=== PATIENT | female | born 1955 | race Caucasian/White ===

== ENCOUNTER 2020-12-17 09:41 | Outpatient (CLI) | payer MEDICARE | END 2020-12-17 09:42 | disposition home or self-care (01) | LOC: BICMAMMO 09:41 | PROVIDERS: ATTEND Internal Medicine Endocrinology, Diabetes & Metabolism | DX: Z13.820 Encounter for screening for osteoporosis (principal); E83.52 Hypercalcemia; Z20.822 Contact with and (suspected) exposure to COVID-19 | CPT/HCPCS: 77080 ==

== ENCOUNTER 2023-04-07 11:25 | Inpatient (IN) | payer MEDICARE ==
[2023-04-07 15:09] LABS: #Basophils 0.1 thou/uL (0.0-0.2); #Eosinphils 0.2 thou/uL (0.0-0.7); #Monocytes 0.4 thou/uL (0.11-0.59); #Neutrophils 3.5 thou/uL (1.40-6.50); %Basophils 0.8 % (0.0-1.0); %Eosinophils 2.7 % (0.0-10.0); %Lymphocytes 31.4 % (21.0-51.0); %Monocytes 6.6 % (0.0-10.0); %Neutrophils 58.3 % (42.0-75.0); Hematocrit 40.8 % (36.0-47.0); Hemoglobin 13.2 g/dL (12.0-16.0); Mean Corpuscular HGB CONC 32.4 g/dL (32.0-36.0); Mean Corpuscular Hemoglobin 29.1 pg (27.0-31.0); Mean Corpuscular Volume 90.1 fl (78.0-98.0); Mean Platelet Volume 9.9 fL (7.4-10.4); Platelet Count 289 10x3/uL (130-400); RBC Distribution Width 13.8 % (11.5-14.5); Red Blood Cell (RBC) Count 4.53 mill/uL (4.20-5.40)
[2023-04-07 15:45] LABS: ALT (SGPT) 68 U/L (8-55); AST (SGOT) 51 U/L (5-34); Albumin 4.1 g/dL (3.4-4.8); Alkaline Phosphatase 110 U/L (40-110); Anion Gap 15 mmol/L (10-20); BUN (Urea Nitrogen) 16 mg/dL (9.8-20.1); Calc. Creatinine Clearance 0 mL/min (70-130); Calcium 10.8 mg/dL (7.8-10.44); Carbon Dioxide 20 mmol/L (23-31); Chloride 108 mmol/L (98-107); Estimated GFR 67; Globulin 2.9 g/dL (2.4-3.5); Glucose 110 mg/dL (80-115); Potassium 4.8 mmol/L (3.5-5.1); Sodium 138 mmol/L (136-145)
[2023-04-07 15:47] LABS: Troponin I 0.047 ng/mL (< 0.028)
[2023-04-07] MEDS ORDERED: Furosemide 40 MG/4 ML VIAL ONE (15:54)
[2023-04-07] MEDS ORDERED: Aspirin Chewable 81 MG TAB ONE (15:54)
[2023-04-07] MEDS ORDERED: Senokot S 8.6-50 MG TAB PO PRN (17:44)
[2023-04-07] MEDS ORDERED: Acetaminophen 325 MG TAB PO PRN (17:44)
[2023-04-07] MEDS ORDERED: Ondansetron PF 4 MG/2 ML Vial IVP PRN (17:44)
[2023-04-07] MEDS ORDERED: Calcium Carbonate 500 MG ChewTAB PO PRN (17:44)
[2023-04-07] MEDS ORDERED: hydrALAZINE 20 MG/ML VIAL SLOW IVP PRN (17:48)
[2023-04-07] MEDS ORDERED: Labetalol HCl 100 MG/20 ML VIAL SLOW IVP SCH (18:00)
[2023-04-07] MEDS ORDERED: Furosemide 40 MG/4 ML VIAL SLOW IVP SCH (18:15)
[2023-04-07] MEDS ORDERED: Labetalol HCl 100 MG/20 ML VIAL ONE ×2 (18:17→18:19)
[2023-04-07] MEDS ORDERED: Furosemide 20 MG/2 ML VIAL ONE (18:17)
[2023-04-07 19:35] LABS: Troponin I 0.052 ng/mL (< 0.028)
[2023-04-07] MEDS: Carvedilol 3.125 MG TAB PO SCH (21:00)
[2023-04-07] MEDS ORDERED: cloNIDine 0.1 MG TAB PO SCH (21:00)
[2023-04-07 22:06] VITALS: BMI 26.4
[2023-04-07 22:29] LABS: Troponin I 0.053 ng/mL (< 0.028)
[2023-04-07] MEDS ORDERED: Sodium Chloride 0.9% 250 ML IV SCH (22:45)
[2023-04-08] MEDS: Furosemide 40 MG/4 ML VIAL SLOW IVP SCH ×2 (05:17→14:04)
[2023-04-08 05:20] LABS: #Basophils 0.1 thou/uL (0.0-0.2); #Eosinphils 0.2 thou/uL (0.0-0.7); #Monocytes 0.6 thou/uL (0.11-0.59); #Neutrophils 4.6 thou/uL (1.40-6.50); %Basophils 0.8 % (0.0-1.0); %Eosinophils 2.5 % (0.0-10.0); %Lymphocytes 27.1 % (21.0-51.0); %Monocytes 8.3 % (0.0-10.0); %Neutrophils 61.2 % (42.0-75.0); Hematocrit 41.8 % (36.0-47.0); Hemoglobin 13.9 g/dL (12.0-16.0); Mean Corpuscular HGB CONC 33.3 g/dL (32.0-36.0); Mean Corpuscular Hemoglobin 28.9 pg (27.0-31.0); Mean Platelet Volume 9.9 fL (7.4-10.4); Platelet Count 283 10x3/uL (130-400); RBC Distribution Width 13.6 % (11.5-14.5); Red Blood Cell (RBC) Count 4.81 mill/uL (4.20-5.40); White Blood Cell (WBC) Count 7.5 10x3/uL (4.8-10.8)
[2023-04-08 05:27] LABS: Hemoglobin A1c 5.4 % (4.0-6.0)
[2023-04-08 05:34] LABS: Mean Corpuscular Volume 86.9 fl (78.0-98.0)
[2023-04-08 05:50] LABS: ALT (SGPT) 56 U/L (8-55); AST (SGOT) 36 U/L (5-34); Alkaline Phosphatase 104 U/L (40-110); Anion Gap 13 mmol/L (10-20); BUN (Urea Nitrogen) 19 mg/dL (9.8-20.1); Bilirubin, Total 0.9 mg/dL (0.2-1.2); Calc. Creatinine Clearance 54 mL/min (70-130); Calcium 10.7 mg/dL (7.8-10.44); Carbon Dioxide 25 mmol/L (23-31); Cardiac Risk 2.5 (Less than 4.5); Chloride 104 mmol/L (98-107); Cholesterol 114 mg/dl (< 200 Desired); Estimated GFR 62; Globulin 3.1 g/dL (2.4-3.5); Glucose 92 mg/dL (80-115); HDL Cholesterol 45 mg/dL (>60 Neg Risk); LDL Cholesterol, Calculated 47 mg/dL; Magnesium 1.9 mg/dL (1.6-2.6); Potassium 3.4 mmol/L (3.5-5.1); Protein, Total 7.1 g/dL (5.8-8.1); Sodium 139 mmol/L (136-145); Triglycerides 108 mg/dL (Less than 150)
[2023-04-08] MEDS ORDERED: Aspirin Chewable 81 MG TAB PO SCH (09:00)
[2023-04-08] MEDS ORDERED: CO Q-10 CAPSULE 100 MG PO SCH (09:00)
[2023-04-08] MEDS ORDERED: Digoxin 0.125 MG TAB PO SCH (09:00)
[2023-04-08] MEDS ORDERED: Spironolactone 25 MG TAB PO SCH (09:00)
[2023-04-08] MEDS: Carvedilol 3.125 MG TAB PO SCH (10:15)
[2023-04-08] MEDS ORDERED: Potassium Chloride 20 MEQ TAB PO SCH (12:15)
[2023-04-08 16:37] VITALS: BP 128/68; TEMP 98
== END 2023-04-08 17:00 | disposition home or self-care (01) | DRG 291 ==
LOC: ERS 11:25 → SUATTDRO 11:25 → 2NO 17:52
PROVIDERS: ADMIT Internal Medicine; ATTEND Internal Medicine
DX: I11.0 Hypertensive heart disease with heart failure (principal); I50.23 Acute on chronic systolic (congestive) heart failure; R09.89 Other specified symptoms and signs involving the circulatory and respiratory systems; Z88.8 Allergy status to other drugs, medicaments and biological substances; Z79.899 Other long term (current) drug therapy
CPT/HCPCS: 36415; 71046; 80053; 80061; 83036; 83735; 83880; 84443; 84484; 85025; 93005; 93306; 96374; 96375; 96376; J1650; J1940; J7030

== ENCOUNTER 2024-09-24 10:30 | Inpatient (IN) | payer MEDICARE ==
[2024-09-24 10:51] VITALS: BMI 27.8
[2024-09-24 12:00] LABS: #Basophils 0.07 10x3/uL (0.0-0.2); %Basophils 0.9 % (0.0-1.0); %Eosinophils 4.8 % (0.0-10.0); %Lymphocytes 27.6 % (21.0-51.0); %Monocytes 7.8 % (0.0-10.0); %Neutrophils 58.8 % (42.0-75.0); Hematocrit 36.9 % (36.0-47.0); Hemoglobin 12.3 g/dL (12.0-16.0); Mean Corpuscular HGB CONC 33.3 g/dL (32.0-36.0); Mean Corpuscular Hemoglobin 30.4 pg (27.0-31.0); Mean Corpuscular Volume 91.3 fL (78.0-98.0); Platelet Count 359 10x3/uL (130-400); RBC Distribution Width 13.3 % (11.5-14.5); Red Blood Cell (RBC) Count 4.04 mill/uL (4.20-5.40)
[2024-09-24 12:40] LABS: Anion Gap 13 mmol/L (10-20); BUN (Urea Nitrogen) 29 mg/dL (9.8-20.1); Calc. Creatinine Clearance 0 mL/min (70-130); Calcium 11.7 mg/dL (7.8-10.44); Carbon Dioxide 22 mmol/L (23-31); Chloride 109 mmol/L (98-107); Estimated GFR 62; Glucose 104 mg/dL (80-115); Potassium 5.1 mmol/L (3.5-5.1); Sodium 139 mmol/L (136-145)
[2024-09-25] MEDS ORDERED: CEFAZOLIN 2 GM VIAL ONE (06:05)
[2024-09-25] MEDS ORDERED: Lidocaine 1% MPF 2 ML VIAL ONE (06:05)
[2024-09-25] MEDS ORDERED: EPINEPHrine 1 MG/ML VIAL ONE ×2 (06:27→08:55)
[2024-09-25] MEDS ORDERED: Albumin 5% 500 ML ONE (06:27)
[2024-09-25] MEDS ORDERED: Dexamethasone 4 mg/ml Vial ONE (06:27)
[2024-09-25] MEDS ORDERED: Bupivacaine PF 0.5% 30 ML VIAL ONE ×2 (06:27→08:55)
[2024-09-25] MEDS ORDERED: Heparin 5,000 UNITS/ML VIAL ONE (06:27)
[2024-09-25] MEDS ORDERED: PHENYLEPHRINE-NS 100 MCG/ML 10 ML SYRINGE ONE ×3 (06:28→10:15)
[2024-09-25] MEDS ORDERED: Fentanyl 250 MCG/5 ML VIAL ONE (06:30)
[2024-09-25] MEDS ORDERED: PROPOFOL 20 ML ONE (06:30)
[2024-09-25] MEDS ORDERED: Midazolam HCl 2 mg/2 ml Vial ONE (06:30)
[2024-09-25] MEDS ORDERED: Ondansetron PF 4 MG/2 ML Vial ONE (06:32)
[2024-09-25] MEDS ORDERED: Rocuronium Bromide 10 MG/ML (10ML VIAL) ONE ×2 (06:32→08:32)
[2024-09-25] MEDS ORDERED: Lidocaine 1% PF 5 ML VIAL ONE (06:32)
[2024-09-25] MEDS ORDERED: Dexamethasone 20 MG/5 ML VIAL ONE (06:32)
[2024-09-25] MEDS ORDERED: Heparin 10,000 UNITS/1 ML VIAL 30,000 UNITS in Sodium Chloride 0.9% 1,000 ML FS SCH (07:00)
[2024-09-25] MEDS ORDERED: Heparin 30,000 units/30 ml VIAL ONE (07:09)
[2024-09-25] MEDS ORDERED: Magnesium 5 GM/10 ML VIAL ONE (07:09)
[2024-09-25] MEDS ORDERED: Potassium Chloride 60 mEq (30 mL) VIAL ONE (07:09)
[2024-09-25] MEDS ORDERED: Papaverine 60 MG/2 ML VIAL ONE (07:09)
[2024-09-25] MEDS ORDERED: Vancomycin 1 GM VIAL ONE (07:09)
[2024-09-25] MEDS ORDERED: Lidocaine 2% PF 100 mg/5 ml Syringe ONE (07:09)
[2024-09-25] MEDS ORDERED: Mannitol 12.5 GM/50 ML ONE (07:09)
[2024-09-25] MEDS ORDERED: Sodium Bicarb 50 mEq/50 ML VIAL ONE (07:09)
[2024-09-25] MEDS ORDERED: Cardioplegic Soln 1,000 ML BAG ONE (07:09)
[2024-09-25] MEDS ORDERED: Aminocaproic Acid 5 GM/20 ML VIAL ONE (07:09)
[2024-09-25] MEDS ORDERED: Protamine Sulfate 250 MG/25 ML VIAL ONE (07:09)
[2024-09-25] MEDS ORDERED: NOREPINEPHRINE 8 MG/250 ML-D5W 250 ML ONE (08:18)
[2024-09-25] MEDS ORDERED: Sodium Chloride 0.9% 250 ML 500 ML ONE (08:38)
[2024-09-25] MEDS ORDERED: EPINEPHrine 4 MG in Dextrose 5% in Water 250 ML IVPB SCH (09:00)
[2024-09-25] MEDS ORDERED: Insulin Regular, Human 100 UNIT/ML 10 ML VIAL ONE ×2 (10:13→10:36)
[2024-09-25] MEDS ORDERED: Guaifenesin DM 100-10/5 ML UDCUP PO PRN (10:33)
[2024-09-25] MEDS ORDERED: Nitroglycerin 50 MG/250 ML BOT 250 ML IVPB PRN (10:33)
[2024-09-25] MEDS ORDERED: Bisacodyl 5 MG TAB PO PRN (10:33)
[2024-09-25] MEDS ORDERED: fentaNYL 50 mcg/mL 1 mL Vial SLOW IVP PRN ×2 (10:33)
[2024-09-25] MEDS ORDERED: Promethazine HCl 25 MG/ML VIAL IM PRN (10:33)
[2024-09-25] MEDS ORDERED: Morphine 2 MG/ML VIAL SLOW IVP PRN (10:33)
[2024-09-25] MEDS ORDERED: traMADol HCl 50 MG TAB PO PRN ×2 (10:33)
[2024-09-25] MEDS ORDERED: Mag-Al 1200 mg/1200 mg/30 ML UDCUP PO PRN (10:33)
[2024-09-25] MEDS ORDERED: hydrALAZINE 20 MG/ML VIAL SLOW IVP PRN (10:33)
[2024-09-25] MEDS ORDERED: NOREPINEPHRINE 8 MG/250 ML-D5W 250 ML IVPB PRN (10:33)
[2024-09-25] MEDS ORDERED: Bisacodyl 10 MG SUPP PR PRN (10:33)
[2024-09-25] MEDS ORDERED: Hetastarch 6% 500 ML 500 ML IVPB PRN (10:33)
[2024-09-25] MEDS ORDERED: Albumin 5% 12.5 GM (250 mL) BOT IVPB PRN (10:33)
[2024-09-25] MEDS ORDERED: Ipratropium/Albuterol 3 ML NEB NEB PRN (10:33)
[2024-09-25] MEDS ORDERED: Ondansetron PF 4 MG/2 ML Vial IVP PRN (10:33)
[2024-09-25 10:42] LABS: Actual Bicarbonate (HCO3a) 16.2 mEq/L (22-28); Base Excess (BEa) -7.4 mEq/L (-2.0 to +3.0); CO2 Tension 27.3 mmHg (35.0-45.0); Calcium, Ionized (arterial) 1.16 mmol/L (1.12-1.30); Carboxyhemoglobin (COHb) 0.3 gm% (0.0-3.0); Hematocrit-ABG 33 % (36.0-47.0); Hemoglobin (Hb) 11.3 g/dL (12.0-16.0); O2 Tension (PaO2), arterial 264.1 mmHg (> 80.0); Potassium - ABG Lab 3.65 mmol/L (3.70-5.30); pH, Arterial 7.391 (7.35-7.45)
[2024-09-25 10:45] LABS: ALV-art Gradient 129.575 mmHg (0-20); Puncture Site Arterial Line
[2024-09-25] MEDS ORDERED: Dextrose 5% in Water 1,000 ML IV PRN (10:45)
[2024-09-25] MEDS ORDERED: Glucagon 1 MG/ML KIT SC PRN (10:45)
[2024-09-25] MEDS: Insulin Regular, Human 100 UNIT/ML 10 ML VIAL SC PRN (10:54)
[2024-09-25] MEDS: Albumin 5% 12.5 GM (250 mL) BOT IVPB PRN (10:57)
[2024-09-25 11:26] LABS: #Basophils 0.04 10x3/uL (0.0-0.2); %Basophils 0.2 % (0.0-1.0); %Eosinophils 0.9 % (0.0-10.0); %Lymphocytes 10.8 % (21.0-51.0); %Monocytes 0.2 % (0.0-10.0); %Neutrophils 86.5 % (42.0-75.0); Hematocrit 31.9 % (36.0-47.0); Hemoglobin 10.6 g/dL (12.0-16.0); Mean Corpuscular HGB CONC 33.2 g/dL (32.0-36.0); Mean Corpuscular Volume 90.4 fL (78.0-98.0); Mean Platelet Volume 9.9 fL (7.4-10.4); Platelet Count 213 10x3/uL (130-400); RBC Distribution Width 13.2 % (11.5-14.5); Red Blood Cell (RBC) Count 3.53 mill/uL (4.20-5.40)
[2024-09-25 11:31] LABS: INR-International Normal Ratio 1.4; Prothrombin Time 16.7 sec (12.0-14.7)
[2024-09-25 11:32] LABS: PTT 31.5 sec (22.9-36.1)
[2024-09-25 11:36] LABS: Anion Gap 18 mmol/L (10-20); BUN (Urea Nitrogen) 23 mg/dL (9.8-20.1); Calc. Creatinine Clearance 73 mL/min (70-130); Carbon Dioxide 17 mmol/L (23-31); Chloride 113 mmol/L (98-107); Estimated GFR 83; Glucose 199 mg/dL (80-115); Potassium 3.6 mmol/L (3.5-5.1); Sodium 144 mmol/L (136-145)
[2024-09-25] MEDS: Magnesium 2 GM/50 ML(in water) 2 GM in Premix 1 BAG IVPB SCH (12:30)
[2024-09-25] MEDS: Ketorolac Tromethamine 30 MG (1 mL) VIAL IVP SCH (12:31)
[2024-09-25] MEDS: D5 1/2 NS w/20 mEq KCL 1,000 ML IV SCH (12:45)
[2024-09-25] MEDS: Dextrose 50% Abboject 50 ML SYRINGE SLOW IVP PRN (13:33)
[2024-09-25] MEDS: Potassium Chloride 20 MEQ (100 mL) BAG IVPB PRN (14:05)
[2024-09-25] MEDS: CEFAZOLIN 2 GM in Sodium Chloride 0.9% 100 ML IVPB SCH (15:25)
[2024-09-25 16:16] LABS: Actual Bicarbonate (HCO3a) 18.5 mEq/L (22-28); Base Excess (BEa) -2.4 mEq/L (-2.0 to +3.0); Calcium, Ionized (arterial) 1.18 mmol/L (1.12-1.30); Carboxyhemoglobin (COHb) 0.2 gm% (0.0-3.0); Hematocrit-ABG 30 % (36.0-47.0); Hemoglobin (Hb) 10.3 g/dL (12.0-16.0); O2 Tension (PaO2), arterial 165.8 mmHg (> 80.0); Potassium - ABG Lab 3.95 mmol/L (3.70-5.30); pH, Arterial 7.558 (7.35-7.45)
[2024-09-25 16:18] LABS: CO2 Tension 21.2 mmHg (35.0-45.0); Puncture Site Arterial Line
[2024-09-25 16:26] LABS: Hematocrit 27.6 % (36.0-47.0); Hemoglobin 9.5 g/dL (12.0-16.0)
[2024-09-25] MEDS: Famotidine/PF 20 mg/2ml Vial SLOW IVP SCH (20:19)
[2024-09-26 04:27] LABS: #Basophils Less than 0.03 10x3/uL (0.0-0.2); #Eosinophils Less than 0.03 10x3/uL (0.0-0.7); %Basophils 0.1 % (0.0-1.0); %Lymphocytes 7.4 % (21.0-51.0); %Neutrophils 84.1 % (42.0-75.0); Hematocrit 24.7 % (36.0-47.0); Hemoglobin 8.3 g/dL (12.0-16.0); Mean Corpuscular HGB CONC 33.6 g/dL (32.0-36.0); Mean Corpuscular Hemoglobin 30.6 pg (27.0-31.0); Mean Corpuscular Volume 91.1 fL (78.0-98.0); Mean Platelet Volume 9.8 fL (7.4-10.4); Platelet Count 180 10x3/uL (130-400); RBC Distribution Width 13.9 % (11.5-14.5); Red Blood Cell (RBC) Count 2.71 mill/uL (4.20-5.40)
[2024-09-26 04:57] LABS: Anion Gap 10 mmol/L (10-20); BUN (Urea Nitrogen) 18 mg/dL (9.8-20.1); Calc. Creatinine Clearance 73 mL/min (70-130); Calcium 8.5 mg/dL (7.8-10.44); Carbon Dioxide 19 mmol/L (23-31); Chloride 116 mmol/L (98-107); Estimated GFR 80; Glucose 116 mg/dL (80-115); Potassium 4.6 mmol/L (3.5-5.1); Sodium 140 mmol/L (136-145)
[2024-09-26] MEDS: Acetaminophen 325 MG TAB PO PRN (05:27)
[2024-09-26] MEDS: Spironolactone 25 MG TAB PO SCH (08:53)
[2024-09-26] MEDS: Furosemide 20 MG TAB PO SCH (08:53)
[2024-09-26] MEDS: Pantoprazole 40 MG DR.TAB PO SCH (08:53)
[2024-09-26] MEDS: Aspirin 325 MG TAB PO SCH (08:53)
[2024-09-26] MEDS: Carvedilol 3.125 MG TAB PO SCH (08:54)
[2024-09-26] MEDS: Magnesium 2 GM/50 ML(in water) 2 GM in Premix 1 BAG IVPB SCH (08:54)
[2024-09-26] MEDS ORDERED: Insulin Glargine 30 UNITS/0.3 ML VIAL SC PRN (10:40)
[2024-09-26] MEDS ORDERED: Mineral Oil ENEMA PR PRN (23:59)
[2024-09-26] MEDS ORDERED: Artificial Tear Ophth Sol 15 ML BOT EA EYE PRN (23:59)
[2024-09-26] MEDS ORDERED: Nitroglycerin 0.4 MG TAB (25 Tab Bottle) SL PRN (23:59)
[2024-09-26] MEDS ORDERED: Milk Of Magnesia 30 ML UDCUP PO PRN (23:59)
[2024-09-26] MEDS ORDERED: diphenhydrAMINE 25 MG CAP PO PRN (23:59)
[2024-09-27] MEDS: Potassium Chloride 10 MEQ TAB PO SCH (08:45)
[2024-09-27] MEDS: Aspirin 325 mg Enteric Coated Tablet PO SCH (08:45)
[2024-09-27] MEDS: Furosemide 40 MG TAB PO SCH (08:56)
[2024-09-27] MEDS: Amiodarone 450 MG in Dextrose 5% in Water 250 ML IVPB SCH (13:25)
[2024-09-27 13:38] LABS: ALT (SGPT) 48 U/L (Less than 34); AST (SGOT) 102 U/L (11-34); Albumin 3.7 g/dL (3.1-4.5); Alkaline Phosphatase 97 U/L (40-110); Bilirubin, Direct 0.6 mg/dL (0.1-0.3); Bilirubin, Total 1.1 mg/dL (0.3-1.2); Magnesium 2.9 mg/dL (1.6-2.6); Protein, Total 6.4 g/dL (5.8-8.1)
[2024-09-28] MEDS: Amiodarone 200 MG TAB PO SCH (14:29)
[2024-09-30] MEDS: Amiodarone In Dextrose 360 MG in Premix 1 BAG IVPB SCH (12:10)
[2024-09-30] MEDS: Amiodarone 450 MG, Admixture Fee 1 EACH in Dextrose 5% in Water 250 ML IVPB SCH (12:54)
[2024-09-30] MEDS: Sodium Chloride 0.9% 500 ML IV SCH (14:00)
[2024-10-01] MEDS: Carvedilol 6.25 MG TAB PO SCH ×2 (12:54→20:42)
[2024-10-02] MEDS: Amiodarone 450 MG in Dextrose 5% in Water 250 ML IVPB SCH (09:11)
[2024-10-02 12:43] VITALS: BMI 28.3
[2024-10-03] MEDS: Carvedilol 6.25 MG TAB PO SCH (10:09)
[2024-10-04 07:54] VITALS: TEMP 98
[2024-10-04] MEDS: Amiodarone 200 MG TAB PO SCH (08:16)
[2024-10-04 08:21] VITALS: BP 110/73
== END 2024-10-04 11:22 | disposition home or self-care (01) | DRG 236 ==
LOC: SURG A 09-25 05:52 → CCU 09-25 11:05 → PCU 09-27 06:37
PROVIDERS: ADMIT Thoracic Surgery (Cardiothoracic Vascular Surgery); ATTEND Thoracic Surgery (Cardiothoracic Vascular Surgery)
PROC: 02100Z9 Bypass Coronary Artery, One Artery from Left Internal Mammary, Open Approach (ICD-10-PCS; principal; 2024-09-25)
PROC: 021109W Bypass Coronary Artery, Two Arteries from Aorta with Autologous Venous Tissue, Open Approach (ICD-10-PCS; 2024-09-25)
PROC: 06BQ4ZZ Excision of Left Saphenous Vein, Percutaneous Endoscopic Approach (ICD-10-PCS; 2024-09-25)
PROC: 02L70CK Occlusion of Left Atrial Appendage with Extraluminal Device, Open Approach (ICD-10-PCS; 2024-09-25)
PROC: 5A1221Z Performance of Cardiac Output, Continuous (ICD-10-PCS; 2024-09-25)
PROC: 3E080GC Introduction of Other Therapeutic Substance into Heart, Open Approach (ICD-10-PCS; 2024-09-25)
PROC: 3E033XZ Introduction of Vasopressor into Peripheral Vein, Percutaneous Approach (ICD-10-PCS; 2024-09-25)
PROC: 30233J1 Transfusion of Nonautologous Serum Albumin into Peripheral Vein, Percutaneous Approach (ICD-10-PCS; 2024-09-25)
DX: I25.10 Atherosclerotic heart disease of native coronary artery without angina pectoris (principal); I97.190 Other postprocedural cardiac functional disturbances following cardiac surgery; I25.2 Old myocardial infarction; I48.0 Paroxysmal atrial fibrillation; E78.5 Hyperlipidemia, unspecified; I11.0 Hypertensive heart disease with heart failure; I50.9 Heart failure, unspecified; Z79.82 Long term (current) use of aspirin; Z79.899 Other long term (current) drug therapy
CPT/HCPCS: 36415; 36416; 36430; 71045; 80048; 80076; 82805; 83735; 84443; 85025; 85610; 85730; 86850; 86900; 86901; 93005; 93010; 93306; 93798; 94002; 94150; 97139; A4311; A4648; C1751; C1889; J0171; J0282; J0283; J0665; J1100; J1642; J1644; J1815; J1885; J2003; J2150; J2250; J2260; J2405; J2440; J2704; J2720; J3010; J3370; J3475; J3480; J3490; J7030; J7042; J7050; J7070; J7999; P9045; S0017